=== PATIENT | female | born 1985 | race Caucasian/White ===

== ENCOUNTER 2023-05-07 03:14 | Emergency (ER) | payer MEDICAID ==
[2023-05-07 03:20] VITALS: BP_SYST 109
--- NOTE | 2023-05-07 03:27 | NUR ---
Patient to ER bed 01 to gown for evaluation. Side rails up. Report given to IVETH HERNANDEZ.
--- NOTE | 2023-05-07 03:28 | NUR ---
Dr. YEAGER at bedside examining the patient.
[2023-05-07] MEDS ORDERED: IPRATROPIUM BROM 0.5 MG/2.5 ML VIAL.NEB (ATROVENT) INH ONE (03:30)
[2023-05-07] MEDS ORDERED: ALBUTEROL SULFATE 0.083% 2.5 MG/3 ML VIAL.NEB INH ONE (03:30)
[2023-05-07] MEDS ORDERED: PRED20TA PO (03:37)
[2023-05-07] MEDS ORDERED: ALBMDI INH (03:37)
[2023-05-07] MEDS ORDERED: predniSONE 20 MG TABLET PO ONE (03:45)
--- NOTE | 2023-05-07 04:19 | NUR ---
Patient given written and verbal discharge instructions and verbalizes understanding. ER MD discussed with patient the results and treatment provided. Patient in stable condition. ID arm band removed. IV catheter removed intact and dressing applied, no active bleeding. Rx of given. Patient educated on pain management and to follow up with PMD. Pain Scale 0/10. Opportunity for questions provided and answered. Medication side effect fact sheet provided.
[2023-05-07 04:21] VITALS: BP_SYST 127
== END 2023-05-07 04:21 | disposition home or self-care (01) ==
LOC: SED 03:14
DX: J45.901 Unspecified asthma with (acute) exacerbation (principal); R06.02 Shortness of breath; Z79.899 Other long term (current) drug therapy
CPT/HCPCS: 94640; 99283; J7512; J7613